=== PATIENT | female | born 1950 | race Two or more races ===

== ENCOUNTER 2017-06-30 12:25 | Emergency (ER) | payer OTHER ==
[~2017-06-30] VITALS: Ht 162.6 cm; Wt 152.0 kg
[~2017-06-30 12:25] MED LIST: ASPI81TA27 PO; ATOR10TA PO; HYDRCRY2 XX; LEVO25TA6 PO; LISI10TA6 PO; METF-370 PO
[2017-06-30 14:23] VITALS: BP 123/60
== END 2017-06-30 16:46 | disposition home or self-care (01) ==
LOC: ER 12:38
DX: N93.8 Other specified abnormal uterine and vaginal bleeding (principal); M19.90 Unspecified osteoarthritis, unspecified site; E11.9 Type 2 diabetes mellitus without complications; E78.5 Hyperlipidemia, unspecified; I10 Essential (primary) hypertension; E07.9 Disorder of thyroid, unspecified; Z90.49 Acquired absence of other specified parts of digestive tract; Z79.899 Other long term (current) drug therapy
CPT/HCPCS: 76830; 76856

== ENCOUNTER 2018-06-04 04:18 | Inpatient (IN) | payer OTHER ==
[~2018-06-04] VITALS: Ht 160 cm; Wt 151.3 kg
[2018-06-04] VITALS (39 sets, daily range): BP systolic 83–124; BP diastolic 37–62
[2018-06-04 05:24] LABS: Basophils # (auto) 0 uL; Basophils % (auto) 0.2 % (0.0-2.0); Eosinophils # (auto) 0 uL; Eosinophils % (auto) 0.1 % (0.0-7.0); Hemoglobin 14.3 g/dL (12.2-16.2); Lymphocytes # (auto) 0.6 uL; Lymphocytes % (auto) 2.9 % (10.0-50.0); Mean Corpuscular Hemoglobin 33.7 pg (28.0-32.0); Mean Corpuscular Hgb Conc. 33.9 g/dL (32.0-36.0); Mean Corpuscular Volume 99.4 fL (80.0-100.0); Monocytes # (auto) 1.3 uL; Monocytes % (auto) 5.9 % (0.0-12.0); Neutrophils # (auto) 19.6 uL; Neutrophils % (auto) 90.9 % (37.0-80.0); Platelet Count (auto) 312 10^3/uL (140-450); Red Blood Cells 4.23 10^6/uL (4.0-5.20); Red Cell Distribution Width 13.5 % (11.8-14.3); White Blood Cell 21.5 10^3/uL (4.4-10.8)
[2018-06-04 05:36] LABS: INR 0.99 (0.9-1.15); Partial Thromboplastin Time 45.3 sec (23.78-33.04); Prothrombin Time 10.6 sec (9.27-12.13)
[2018-06-04 05:38] LABS: Alanine Aminotransferase 34 U/L (13-56); Anion Gap 14 (5-15); Aspartate Aminotransferase 36 U/L (15-37); BUN/Creatinine Ratio 10.8; Blood Urea Nitrogen 11 mg/dL (7-18); Carbon Dioxide 19 mmol/L (21-32); Chloride 96 mmol/L (98-107); GFR African American 70 mL/min; GFR Non-African American 58 mL/min; Glucose 102 mg/dL (74-106); Lipase 53 U/L (73-393); Potassium 3.6 mmol/L (3.5-5.1); Sodium 129 mmol/L (136-145)
[2018-06-04 05:40] LABS: Lactic Acid w/Reflex 2.8 mmol/L (0.4-2.0)
[2018-06-04 05:43] LABS: Alkaline Phosphatase 158 U/L (45-117); Bilirubin, Total 1.4 mg/dL (0.2-1.0); Total Protein 7.5 g/dL (6.4-8.2)
[2018-06-04] MEDS ORDERED: SODIUM CHLORIDE 0.9% 1,000 ML IV ONE ×2 (05:45→06:00)
[2018-06-04] MEDS ORDERED: IOHEXOL 300 MG/ML 100ML BOTTLE IJ ONE (05:53)
[2018-06-04] MEDS ORDERED: LEVOFLOXACIN 750MG 150 ML IV ONE (06:00)
[2018-06-04 06:10] LABS: Albumin 1.1 g/dL (3.4-5.0)
[2018-06-04 06:33] LABS: Urine Bacteria MANY /hpf (None Seen); Urine Blood 2+ /uL (Negative); Urine Hyaline Cast MOD /lpf (0 - 2); Urine Mucus FEW (None Seen); Urine WBC 20 /hpf (0 - 5)
[2018-06-04] MEDS ORDERED: PIPERACILLIN-TAZOB 3.375GM 100 ML IV ONE (07:45)
[2018-06-04] MEDS ORDERED: CLINDAMYCIN 900MG IV 50 ML IV ONE (07:45)
[2018-06-04] MEDS ORDERED: MORPHINE SULFATE 4 MG/ML SYR/VIAL IV ONE (08:15)
[2018-06-04] MEDS ORDERED: ONDANSETRON HCL 4 MG/2 ML VIAL IV ONE (08:15)
[2018-06-04] MEDS ORDERED: MORPHINE SULFATE 4 MG/ML SYR/VIAL IV PRN (10:00)
[2018-06-04] MEDS ORDERED: PANTOPRAZOLE 40 MG/10 ML VIAL IV ONE (10:00)
[2018-06-04] MEDS ORDERED: DEXTROSE (50%) 50ML SYRG IV PRN (10:00)
[2018-06-04] MEDS ORDERED: NITROGLYCERIN 0.4 MG SL TAB SL PRN (10:00)
[2018-06-04] MEDS ORDERED: MORPHINE SULF INJ 2 MG/ML SYRINGE 1ML IV PRN (10:00)
[2018-06-04 10:03] LABS: Lactic Acid w/Reflex 2.9 mmol/L (0.4-2.0)
[2018-06-04] MEDS: SODIUM CHLORIDE 0.9% 1,000 ML IV SCH ×2 (10:16→15:15)
[2018-06-04] MEDS: PIPERACILLIN-TAZOB 3.375GM 100 ML IV SCH ×2 (12:00→18:12)
[2018-06-04] MEDS: InsuLIN REG 1unit/0.01ml Soln (100units/ml) SC SCH ×3 (12:00→23:49)
[2018-06-04] MEDS: ACCU-CHEK COMFORT CURVE STRIP VI SCH ×3 (12:01→23:49)
[2018-06-04] MEDS: CLINDAMYCIN 600MG IV 50 ML IV SCH ×2 (15:00→23:06)
[2018-06-04] MEDS ORDERED: LOSA50TA6 PO (16:55)
[2018-06-04] MEDS ORDERED: LEVO112T4 PO (16:55)
[2018-06-04] MEDS: MORPHINE SULF INJ 2 MG/ML SYRINGE 1ML IV PRN (19:34)
[2018-06-05] VITALS (89 sets, daily range): BP systolic 87–129; BP diastolic 40–71
[2018-06-05] MEDS: PIPERACILLIN-TAZOB 3.375GM 100 ML IV SCH ×5 (00:44→23:58)
[2018-06-05] MEDS: SODIUM CHLORIDE 0.9% 1,000 ML IV SCH ×3 (01:46→18:00)
[2018-06-05 04:00] LABS: Basophils # (auto) 0.1 uL; Basophils % (auto) 0.4 % (0.0-2.0); Eosinophils # (auto) 0.1 uL; Eosinophils % (auto) 0.7 % (0.0-7.0); Hematocrit 35.1 % (36.0-46.0); Hemoglobin 11.7 g/dL (12.2-16.2); Lymphocytes # (auto) 0.7 uL; Lymphocytes % (auto) 4.1 % (10.0-50.0); Mean Corpuscular Hgb Conc. 33.2 g/dL (32.0-36.0); Mean Corpuscular Volume 99.5 fL (80.0-100.0); Monocytes # (auto) 1.3 uL; Monocytes % (auto) 7.5 % (0.0-12.0); Neutrophils # (auto) 14.6 uL; Neutrophils % (auto) 87.3 % (37.0-80.0); Platelet Count (auto) 268 10^3/uL (140-450); Red Blood Cells 3.53 10^6/uL (4.0-5.20); Red Cell Distribution Width 13.5 % (11.8-14.3); White Blood Cell 16.7 10^3/uL (4.4-10.8)
[2018-06-05 04:14] LABS: Albumin 1.7 g/dL (3.4-5.0); Calcium 7.6 mg/dL (8.5-10.1); Potassium 3.6 mmol/L (3.5-5.1)
[2018-06-05 04:15] LABS: BUN/Creatinine Ratio 18.2
[2018-06-05 04:18] LABS: Total Protein 6.2 g/dL (6.4-8.2)
[2018-06-05 04:29] LABS: INR 1.03 (0.9-1.15); Partial Thromboplastin Time 48.3 sec (23.78-33.04)
[2018-06-05] MEDS: ACCU-CHEK COMFORT CURVE STRIP VI SCH ×3 (05:51→18:45)
[2018-06-05] MEDS: InsuLIN REG 1unit/0.01ml Soln (100units/ml) SC SCH ×3 (05:52→18:45)
[2018-06-05] MEDS: CLINDAMYCIN 600MG IV 50 ML IV SCH (07:30)
[2018-06-05] MEDS ORDERED: OPTISON 3ml Vial for INJ IV ONE (08:31)
[2018-06-05] MEDS ORDERED: POVIDONE IODINE 10 % TOPICAL OINT 30GM TOP ONE (09:11)
[2018-06-05] MEDS ORDERED: BENZOCAINE (DENTAL) 20 % SPRAY 60ML MT ONE (09:24)
[2018-06-05] MEDS ORDERED: ceFAZolin 1GM/50ML 50 ML IV ONE (09:28)
[2018-06-05] MEDS ORDERED: ONDANSETRON HCL 4 MG/2 ML VIAL IV PRN (11:15)
[2018-06-05] MEDS ORDERED: VANCOMYCIN PER PHARMACY 0 MG IV SCH (11:30)
[2018-06-05] MEDS ORDERED: MIDAZOLAM DRIP 50 mg/50mL 50 ML IV ONE (12:33)
[2018-06-05] MEDS: PANTOPRAZOLE 40 MG/10 ML VIAL IV SCH (13:00)
[2018-06-05] MEDS: MIDAZOLAM DRIP 50 mg/50mL 50 ML IV SCH ×2 (13:03→23:29)
[2018-06-05] MEDS ORDERED: ROCURONIUM 10MG/ML 10ML VIAL IV ONE (13:50)
[2018-06-05] MEDS ORDERED: fentaNYL CITRATE 250 MCG/5 ML VL IV ONE (13:50)
[2018-06-05] MEDS ORDERED: SUCCINYLCHOLINE CHLORIDE 20 MG/ML 10ML VIAL IV ONE (13:50)
[2018-06-05] MEDS ORDERED: MIDAZOLAM HCL 1MG/1ML-2 ML VIAL IV ONE (13:50)
[2018-06-05] MEDS ORDERED: PROPOFOL 10 MG/ML 20 ML IV ONE (13:50)
[2018-06-05] MEDS ORDERED: ceFAZolin 1GM VL IV ONE (13:50)
[2018-06-05] MEDS ORDERED: LIDOCAINE 1% (LOCAL ANESTH.) PF 5ml SDV ID ONE (15:45)
[2018-06-05] MEDS: VANCOMYCIN 1,500 MG in D5W 5% 250 ML IV SCH (16:00)
[2018-06-05] MEDS ORDERED: metroNIDAZOLE 250MG/50 ML 50 ML IR SCH ×2 (18:00→18:13)
[2018-06-05] MEDS ORDERED: metroNIDAZOLE 500MG/100ML 50 ML IV SCH (18:00)
[2018-06-05] MEDS: SODIUM CHLOR 0.9% PF (SALINE LOCK) 10ML VIAL/SYR IV SCH (21:58)
[2018-06-06] VITALS (106 sets, daily range): BP systolic 91–116; BP diastolic 42–66
[2018-06-06] MEDS ORDERED: SODIUM CHLOR 0.9% PF (SALINE LOCK) 10ML VIAL/SYR XX SCH
[2018-06-06] MEDS: SODIUM CHLORIDE 0.9% 1,000 ML IV SCH ×3 (01:46→17:46)
[2018-06-06] MEDS: VANCOMYCIN 1,500 MG in D5W 5% 250 ML IV SCH ×2 (03:13→15:30)
[2018-06-06 03:38] LABS: Basophils # (auto) 0 uL; Basophils % (auto) 0.2 % (0.0-2.0); Eosinophils # (auto) 0.1 uL; Eosinophils % (auto) 0.6 % (0.0-7.0); Hematocrit 32.4 % (36.0-46.0); Hemoglobin 10.7 g/dL (12.2-16.2); Lymphocytes # (auto) 0.7 uL; Lymphocytes % (auto) 4.4 % (10.0-50.0); Mean Corpuscular Hemoglobin 32.7 pg (28.0-32.0); Mean Corpuscular Hgb Conc. 33.1 g/dL (32.0-36.0); Mean Corpuscular Volume 98.9 fL (80.0-100.0); Monocytes # (auto) 1.1 uL; Monocytes % (auto) 6.5 % (0.0-12.0); Neutrophils # (auto) 14.4 uL; Neutrophils % (auto) 88.3 % (37.0-80.0); Platelet Count (auto) 244 10^3/uL (140-450); Red Blood Cells 3.27 10^6/uL (4.0-5.20); Red Cell Distribution Width 13.6 % (11.8-14.3); White Blood Cell 16.3 10^3/uL (4.4-10.8)
[2018-06-06 03:54] LABS: Calcium 7.5 mg/dL (8.5-10.1); Partial Thromboplastin Time 39.5 sec (23.78-33.04)
[2018-06-06 03:56] LABS: BUN/Creatinine Ratio 16.7; Magnesium 2.3 mg/dL (1.6-2.6)
[2018-06-06 04:44] LABS: Prothrombin Time 10.7 sec (9.27-12.13)
[2018-06-06] MEDS: POTASSIUM CHL 20MEQ/100ML 100 ML IV SCH ×7 (05:59→23:52)
[2018-06-06] MEDS: InsuLIN REG 1unit/0.01ml Soln (100units/ml) SC SCH ×5 (06:00→23:57)
[2018-06-06] MEDS: PIPERACILLIN-TAZOB 3.375GM 100 ML IV SCH ×4 (06:00→23:50)
[2018-06-06] MEDS: ACCU-CHEK COMFORT CURVE STRIP VI SCH ×5 (06:00→23:58)
[2018-06-06] MEDS: MIDAZOLAM DRIP 50 mg/50mL 50 ML IV SCH (06:08)
[2018-06-06] MEDS: metroNIDAZOLE 250MG/50 ML 50 ML IR SCH (07:50)
[2018-06-06] MEDS: SODIUM CHLOR 0.9% PF (SALINE LOCK) 10ML VIAL/SYR IV SCH ×2 (10:16→22:00)
[2018-06-06] MEDS: PANTOPRAZOLE 40 MG/10 ML VIAL IV SCH (10:40)
[2018-06-06] MEDS: fentaNYL Drip 2500mCg/250mlNS 250 ML IV SCH (11:55)
[2018-06-06] MEDS ORDERED: LORazepam 2MG/ML-1ML VIAL IV PRN (12:45)
[2018-06-06] MEDS: SODIUM CHLOR 0.9% PF (SALINE LOCK) 10ML VIAL/SYR XX SCH ×2 (16:20→23:58)
[2018-06-06 17:56] LABS: Basophils # (auto) 0 uL; Basophils % (auto) 0.2 % (0.0-2.0); Eosinophils # (auto) 0.2 uL; Eosinophils % (auto) 1.2 % (0.0-7.0); Hematocrit 31.5 % (36.0-46.0); Hemoglobin 10.5 g/dL (12.2-16.2); Lymphocytes # (auto) 0.8 uL; Lymphocytes % (auto) 5.2 % (10.0-50.0); Mean Corpuscular Hemoglobin 33.5 pg (28.0-32.0); Mean Corpuscular Hgb Conc. 33.3 g/dL (32.0-36.0); Mean Corpuscular Volume 100.7 fL (80.0-100.0); Monocytes % (auto) 6.7 % (0.0-12.0); Neutrophils # (auto) 12.7 uL; Neutrophils % (auto) 86.7 % (37.0-80.0); Platelet Count (auto) 237 10^3/uL (140-450); Red Blood Cells 3.13 10^6/uL (4.0-5.20); White Blood Cell 14.7 10^3/uL (4.4-10.8)
[2018-06-06 18:10] LABS: INR 1.01 (0.9-1.15); Partial Thromboplastin Time 33.1 sec (23.78-33.04); Prothrombin Time 10.8 sec (9.27-12.13)
[2018-06-06 18:16] LABS: Albumin 1.6 g/dL (3.4-5.0); BUN/Creatinine Ratio 13.8; Bilirubin, Direct 0.4 mg/dL (0-0.2); Bilirubin, Total 0.8 mg/dL (0.2-1.0); Calcium 7.3 mg/dL (8.5-10.1); Magnesium 2.7 mg/dL (1.6-2.6); Potassium 3.3 mmol/L (3.5-5.1); Total Protein 5.9 g/dL (6.4-8.2)
[2018-06-06] MEDS: ALBUTEROL SULF 2.5 MG/0.5ML(0.5%) NEB SOLN NEB SCH (18:22)
[2018-06-07] VITALS (96 sets, daily range): BP systolic 56–149; BP diastolic 30–91
[2018-06-07] MEDS: ALBUTEROL SULF 2.5 MG/0.5ML(0.5%) NEB SOLN NEB SCH ×4 (00:08→19:27)
[2018-06-07] MEDS: SODIUM CHLORIDE 0.9% 1,000 ML IV SCH ×4 (01:46→20:30)
[2018-06-07] MEDS: VANCOMYCIN 1,500 MG in D5W 5% 250 ML IV SCH ×2 (03:00→17:00)
[2018-06-07] MEDS ORDERED: NOREPINEPHRINE 8 MG/250ML KIT 250 ML IV ONE (03:44)
[2018-06-07] MEDS: NOREPINEPHRINE 8 MG/250ML KIT 250 ML IV SCH (03:45)
[2018-06-07 04:18] LABS: Basophils # (auto) 0.1 uL; Basophils % (auto) 0.4 % (0.0-2.0); Eosinophils # (auto) 0.2 uL; Eosinophils % (auto) 1.3 % (0.0-7.0); Hematocrit 32.1 % (36.0-46.0); Hemoglobin 10.6 g/dL (12.2-16.2); Lymphocytes # (auto) 0.8 uL; Lymphocytes % (auto) 5.1 % (10.0-50.0); Mean Corpuscular Hemoglobin 32.8 pg (28.0-32.0); Mean Corpuscular Volume 99.3 fL (80.0-100.0); Monocytes # (auto) 1.3 uL; Monocytes % (auto) 8.5 % (0.0-12.0); Neutrophils # (auto) 12.4 uL; Neutrophils % (auto) 84.7 % (37.0-80.0); Platelet Count (auto) 252 10^3/uL (140-450); Red Blood Cells 3.23 10^6/uL (4.0-5.20); Red Cell Distribution Width 13.9 % (11.8-14.3); White Blood Cell 14.7 10^3/uL (4.4-10.8)
[2018-06-07 04:19] LABS: Albumin 1.6 g/dL (3.4-5.0); BUN/Creatinine Ratio 12.2; Calcium 7.4 mg/dL (8.5-10.1); Magnesium 2.3 mg/dL (1.6-2.6); Potassium 4.5 mmol/L (3.5-5.1)
[2018-06-07 04:23] LABS: Bilirubin, Total 0.8 mg/dL (0.2-1.0); Total Protein 5.9 g/dL (6.4-8.2)
[2018-06-07 04:36] LABS: INR 0.98 (0.9-1.15); Partial Thromboplastin Time 35.1 sec (23.78-33.04); Prothrombin Time 10.5 sec (9.27-12.13)
[2018-06-07 04:46] LABS: Bilirubin, Direct 0.4 mg/dL (0-0.2)
[2018-06-07] MEDS: PIPERACILLIN-TAZOB 3.375GM 100 ML IV SCH ×3 (06:00→18:30)
[2018-06-07] MEDS: ACCU-CHEK COMFORT CURVE STRIP VI SCH ×3 (06:00→18:30)
[2018-06-07] MEDS: InsuLIN REG 1unit/0.01ml Soln (100units/ml) SC SCH ×3 (06:00→18:30)
[2018-06-07] MEDS ORDERED: ALBUMIN 25% 100 ML IV ONE (07:15)
[2018-06-07] MEDS: SODIUM CHLOR 0.9% PF (SALINE LOCK) 10ML VIAL/SYR IV SCH ×2 (10:00→22:00)
[2018-06-07] MEDS: metroNIDAZOLE 250MG/50 ML 50 ML IR SCH (10:28)
[2018-06-07] MEDS: PANTOPRAZOLE 40 MG/10 ML VIAL IV SCH (10:29)
[2018-06-07] MEDS: LEVOTHYROXINE SODIUM 100 MCG/5 ML INJ IV SCH (10:29)
[2018-06-07] MEDS: fentaNYL Drip 2500mCg/250mlNS 250 ML IV SCH (10:52)
[2018-06-07] MEDS: MIDAZOLAM DRIP 50 mg/50mL 50 ML IV SCH (12:59)
[2018-06-07] MEDS: SODIUM CHLOR 0.9% PF (SALINE LOCK) 10ML VIAL/SYR XX SCH (16:00)
[2018-06-07] MEDS ORDERED: TPN PER PHARMACY 0 ML IV SCH (19:15)
[2018-06-07] MEDS ORDERED: AMINO ACID INFUSION IN D10W 1,000 ML IV NR (20:30)
[2018-06-07] MEDS ORDERED: DEXTROSE (50%) 50ML SYRG IV SCH (20:30)
[2018-06-08] VITALS (52 sets, daily range): BP systolic 90–140; BP diastolic 37–105
[2018-06-08] MEDS: ALBUTEROL SULF 2.5 MG/0.5ML(0.5%) NEB SOLN NEB SCH ×4 (00:24→18:34)
[2018-06-08] MEDS: PIPERACILLIN-TAZOB 3.375GM 100 ML IV SCH ×5 (00:30→23:50)
[2018-06-08] MEDS: InsuLIN REG 1unit/0.01ml Soln (100units/ml) SC SCH ×5 (00:30→23:50)
[2018-06-08] MEDS: ACCU-CHEK COMFORT CURVE STRIP VI SCH ×5 (00:30→23:51)
[2018-06-08] MEDS: SODIUM CHLOR 0.9% PF (SALINE LOCK) 10ML VIAL/SYR XX SCH ×3 (00:30→23:51)
[2018-06-08] MEDS: MORPHINE SULF INJ 2 MG/ML SYRINGE 1ML IV PRN (02:43)
[2018-06-08] MEDS: VANCOMYCIN 1,500 MG in D5W 5% 250 ML IV SCH ×2 (03:15→15:00)
[2018-06-08] MEDS: NOREPINEPHRINE 8 MG/250ML KIT 250 ML IV SCH (03:45)
[2018-06-08 04:07] LABS: Basophils # (auto) 0 uL; Basophils % (auto) 0.1 % (0.0-2.0); Eosinophils # (auto) 0.4 uL; Hematocrit 31.4 % (36.0-46.0); Hemoglobin 10.4 g/dL (12.2-16.2); Lymphocytes # (auto) 0.9 uL; Lymphocytes % (auto) 7.7 % (10.0-50.0); Mean Corpuscular Hemoglobin 33.2 pg (28.0-32.0); Mean Corpuscular Hgb Conc. 33.2 g/dL (32.0-36.0); Mean Corpuscular Volume 99.9 fL (80.0-100.0); Monocytes % (auto) 8.3 % (0.0-12.0); Neutrophils # (auto) 9.9 uL; Neutrophils % (auto) 80.9 % (37.0-80.0); Platelet Count (auto) 236 10^3/uL (140-450); Red Blood Cells 3.14 10^6/uL (4.0-5.20); Red Cell Distribution Width 14.1 % (11.8-14.3); White Blood Cell 12.3 10^3/uL (4.4-10.8)
[2018-06-08 04:32] LABS: Partial Thromboplastin Time 32.9 sec (23.78-33.04); Prothrombin Time 10.7 sec (9.27-12.13)
[2018-06-08 04:33] LABS: Albumin 1.8 g/dL (3.4-5.0); BUN/Creatinine Ratio 9.5; Bilirubin, Total 0.6 mg/dL (0.2-1.0); Calcium 7.6 mg/dL (8.5-10.1); Magnesium 2.9 mg/dL (1.6-2.6); Phosphorus 2.9 mg/dL (2.5-4.90); Potassium 3.6 mmol/L (3.5-5.1); Pre Albumin 5.8 mg/dL (20.0-40.0); Total Protein 5.9 g/dL (6.4-8.2)
[2018-06-08] MEDS: SODIUM CHLORIDE 0.9% 1,000 ML IV SCH ×2 (10:42→20:43)
[2018-06-08] MEDS: LEVOTHYROXINE SODIUM 100 MCG/5 ML INJ IV SCH (10:42)
[2018-06-08] MEDS: PANTOPRAZOLE 40 MG/10 ML VIAL IV SCH (10:42)
[2018-06-08] MEDS: metroNIDAZOLE 250MG/50 ML 50 ML IR SCH (10:42)
[2018-06-08] MEDS: SODIUM CHLOR 0.9% PF (SALINE LOCK) 10ML VIAL/SYR IV SCH ×2 (10:43→22:00)
[2018-06-08] MEDS: fentaNYL Drip 2500mCg/250mlNS 250 ML IV SCH (10:52)
[2018-06-08] MEDS ORDERED: SODIUM CHLORIDE 0.9% 1,000 ML IV ONE (11:00)
[2018-06-08] MEDS ORDERED: MORPHINE SULFATE 4 MG/ML SYR/VIAL IV PRN (11:00)
[2018-06-08] MEDS: MIDAZOLAM DRIP 50 mg/50mL 50 ML IV SCH (12:59)
[2018-06-08] MEDS ORDERED: TPN PER PHARMACY IV NR ×7 (20:00)
[2018-06-09] VITALS: BP 123/63
[2018-06-09] MEDS: ALBUTEROL SULF 2.5 MG/0.5ML(0.5%) NEB SOLN NEB SCH ×4 (00:11→18:03)
[2018-06-09] MEDS: MORPHINE SULF INJ 2 MG/ML SYRINGE 1ML IV PRN (01:04)
[2018-06-09] MEDS: VANCOMYCIN 1,500 MG in D5W 5% 250 ML IV SCH (03:04)
[2018-06-09 04:08] VITALS: BP 112/58
[2018-06-09 04:54] LABS: Basophils # (auto) 0 uL; Basophils % (auto) 0.2 % (0.0-2.0); Eosinophils # (auto) 0.4 uL; Eosinophils % (auto) 3.6 % (0.0-7.0); Hematocrit 31.9 % (36.0-46.0); Hemoglobin 10.6 g/dL (12.2-16.2); Lymphocytes # (auto) 0.9 uL; Lymphocytes % (auto) 8.6 % (10.0-50.0); Mean Corpuscular Hemoglobin 33.4 pg (28.0-32.0); Mean Corpuscular Hgb Conc. 33.3 g/dL (32.0-36.0); Mean Corpuscular Volume 100.3 fL (80.0-100.0); Monocytes # (auto) 0.9 uL; Neutrophils # (auto) 8.7 uL; Neutrophils % (auto) 79.6 % (37.0-80.0); Platelet Count (auto) 292 10^3/uL (140-450); Red Blood Cells 3.18 10^6/uL (4.0-5.20); White Blood Cell 10.9 10^3/uL (4.4-10.8)
[2018-06-09 05:15] LABS: Albumin 1.8 g/dL (3.4-5.0); BUN/Creatinine Ratio 11.1; Bilirubin, Total 0.5 mg/dL (0.2-1.0); Calcium 7.5 mg/dL (8.5-10.1); Magnesium 2.9 mg/dL (1.6-2.6); Phosphorus 2.8 mg/dL (2.5-4.90); Potassium 3.7 mmol/L (3.5-5.1); Total Protein 5.7 g/dL (6.4-8.2)
[2018-06-09] MEDS: ACCU-CHEK COMFORT CURVE STRIP VI SCH ×4 (06:00→23:15)
[2018-06-09 06:21] LABS: INR 1.03 (0.9-1.15); Partial Thromboplastin Time 32.4 sec (23.78-33.04)
[2018-06-09] MEDS: PIPERACILLIN-TAZOB 3.375GM 100 ML IV SCH ×2 (06:37→12:15)
[2018-06-09] MEDS: InsuLIN REG 1unit/0.01ml Soln (100units/ml) SC SCH ×4 (06:37→23:15)
[2018-06-09 07:30] VITALS: BP 122/71
[2018-06-09] MEDS: PANTOPRAZOLE 40 MG/10 ML VIAL IV SCH (10:52)
[2018-06-09] MEDS: LEVOTHYROXINE SODIUM 100 MCG/5 ML INJ IV SCH (10:52)
[2018-06-09] MEDS: SODIUM CHLORIDE 0.9% 1,000 ML IV SCH ×2 (10:53→22:30)
[2018-06-09] MEDS: metroNIDAZOLE 250MG/50 ML 50 ML IR SCH (10:53)
[2018-06-09] MEDS: SODIUM CHLOR 0.9% PF (SALINE LOCK) 10ML VIAL/SYR IV SCH ×2 (12:16→22:19)
[2018-06-09] MEDS ORDERED: SODIUM CHLORIDE 0.9% 1,000 ML IV ONE (14:00)
[2018-06-09] MEDS: VANCOMYCIN 1GM/250ML 250 ML IV SCH (14:41)
[2018-06-09 16:00] VITALS: BP 128/63
[2018-06-09] MEDS: cefTRIAXone 1GM/10ml IVPUSH 10 ML IV SCH (16:03)
[2018-06-09] MEDS ORDERED: TPN PER PHARMACY IV NR ×7 (20:00)
[2018-06-09 20:12] VITALS: BP 118/59
[2018-06-09 23:59] LABS: Urine Bacteria FEW /hpf (None Seen); Urine Blood 2+ /uL (Negative); Urine Mucus FEW (None Seen); Urine Specific Gravity 1.007 (1.001-1.035); Urine WBC 10 /hpf (0 - 5)
[2018-06-10] MEDS: ALBUTEROL SULF 2.5 MG/0.5ML(0.5%) NEB SOLN NEB SCH ×4 (00:01→19:01)
[2018-06-10 00:26] VITALS: BP 132/66
[2018-06-10] MEDS: MORPHINE SULF INJ 2 MG/ML SYRINGE 1ML IV PRN ×2 (01:31→12:38)
[2018-06-10] MEDS: cefTRIAXone 1GM/10ml IVPUSH 10 ML IV SCH ×2 (02:24→15:27)
[2018-06-10] MEDS: VANCOMYCIN 1GM/250ML 250 ML IV SCH ×2 (02:32→15:27)
[2018-06-10 04:00] VITALS: BP 127/65
[2018-06-10 05:04] LABS: Basophils # (auto) 0 uL; Basophils % (auto) 0.2 % (0.0-2.0); Eosinophils # (auto) 0.4 uL; Monocytes # (auto) 0.8 uL
[2018-06-10 05:11] LABS: Eosinophils % (auto) 3.7 % (0.0-7.0); Hematocrit 34.6 % (36.0-46.0); Hemoglobin 11.6 g/dL (12.2-16.2); Lymphocytes # (auto) 0.9 uL; Lymphocytes % (auto) 8.3 % (10.0-50.0); Mean Corpuscular Hemoglobin 33.7 pg (28.0-32.0); Mean Corpuscular Hgb Conc. 33.4 g/dL (32.0-36.0); Mean Corpuscular Volume 100.7 fL (80.0-100.0); Monocytes % (auto) 7.4 % (0.0-12.0); Neutrophils # (auto) 8.3 uL; Neutrophils % (auto) 80.4 % (37.0-80.0); Platelet Count (auto) 317 10^3/uL (140-450); Red Blood Cells 3.43 10^6/uL (4.0-5.20); Red Cell Distribution Width 13.8 % (11.8-14.3); White Blood Cell 10.3 10^3/uL (4.4-10.8)
[2018-06-10 05:23] LABS: Albumin 1.8 g/dL (3.4-5.0); BUN/Creatinine Ratio 12.5; Bilirubin, Total 0.5 mg/dL (0.2-1.0); Calcium 7.7 mg/dL (8.5-10.1); Magnesium 2.3 mg/dL (1.6-2.6); Potassium 3.3 mmol/L (3.5-5.1); Total Protein 6.2 g/dL (6.4-8.2)
[2018-06-10] MEDS: InsuLIN REG 1unit/0.01ml Soln (100units/ml) SC SCH ×4 (06:00→23:23)
[2018-06-10] MEDS: ACCU-CHEK COMFORT CURVE STRIP VI SCH ×4 (06:19→23:24)
[2018-06-10 08:00] VITALS: BP 134/66
[2018-06-10] MEDS ORDERED: POTASSIUM CHL 20MEQ/100ML 100 ML IV ONE (09:45)
[2018-06-10 10:37] LABS: Creatinine, Urine 30 mg/dL (30.0-125.0); Sodium Urine 73 mmol/L (40-220)
[2018-06-10] MEDS: LEVOTHYROXINE SODIUM 100 MCG/5 ML INJ IV SCH (11:03)
[2018-06-10] MEDS: SODIUM CHLOR 0.9% PF (SALINE LOCK) 10ML VIAL/SYR IV SCH ×2 (11:03→22:00)
[2018-06-10] MEDS: PANTOPRAZOLE 40 MG/10 ML VIAL IV SCH (11:03)
[2018-06-10] MEDS: SODIUM CHLORIDE 0.9% 1,000 ML IV SCH (11:24)
[2018-06-10 12:00] VITALS: BP 133/64
[2018-06-10] MEDS ORDERED: SODIUM CHLORIDE 0.9% 500 ML IV ONE (14:30)
[2018-06-10] MEDS ORDERED: TPN PER PHARMACY IV NR ×7 (20:00)
[2018-06-10 20:30] VITALS: BP 146/68
[2018-06-11] VITALS (8 sets, daily range): BP systolic 132–159; BP diastolic 68–90
[2018-06-11] MEDS: ALBUTEROL SULF 2.5 MG/0.5ML(0.5%) NEB SOLN NEB SCH ×4 (00:27→17:54)
[2018-06-11] MEDS: MORPHINE SULF INJ 2 MG/ML SYRINGE 1ML IV PRN ×2 (01:39→20:23)
[2018-06-11 02:21] LABS: Basophils # (auto) 0.1 uL; Basophils % (auto) 0.4 % (0.0-2.0); Eosinophils # (auto) 0.4 uL; Eosinophils % (auto) 2.6 % (0.0-7.0); Hematocrit 34.5 % (36.0-46.0); Hemoglobin 11.3 g/dL (12.2-16.2); Lymphocytes # (auto) 0.9 uL; Lymphocytes % (auto) 6.7 % (10.0-50.0); Mean Corpuscular Hemoglobin 32.6 pg (28.0-32.0); Mean Corpuscular Hgb Conc. 32.8 g/dL (32.0-36.0); Mean Corpuscular Volume 99.3 fL (80.0-100.0); Monocytes # (auto) 0.8 uL; Monocytes % (auto) 5.8 % (0.0-12.0); Neutrophils # (auto) 11.9 uL; Neutrophils % (auto) 84.5 % (37.0-80.0); Platelet Count (auto) 323 10^3/uL (140-450); Red Blood Cells 3.48 10^6/uL (4.0-5.20); Red Cell Distribution Width 13.9 % (11.8-14.3); White Blood Cell 14.1 10^3/uL (4.4-10.8)
[2018-06-11] MEDS: VANCOMYCIN 1GM/250ML 250 ML IV SCH (02:51)
[2018-06-11] MEDS: SODIUM CHLORIDE 0.9% 1,000 ML IV SCH ×2 (02:51→19:50)
[2018-06-11] MEDS: cefTRIAXone 1GM/10ml IVPUSH 10 ML IV SCH ×2 (02:52→15:01)
[2018-06-11 03:10] LABS: Albumin 1.9 g/dL (3.4-5.0); BUN/Creatinine Ratio 12.3; Calcium 8.1 mg/dL (8.5-10.1); Potassium 3.5 mmol/L (3.5-5.1)
[2018-06-11 03:12] LABS: Bilirubin, Total 0.4 mg/dL (0.2-1.0); Phosphorus 2.7 mg/dL (2.5-4.90); Total Protein 6.8 g/dL (6.4-8.2)
[2018-06-11] MEDS: ACCU-CHEK COMFORT CURVE STRIP VI SCH ×4 (05:47→23:41)
[2018-06-11] MEDS: InsuLIN REG 1unit/0.01ml Soln (100units/ml) SC SCH ×5 (05:48→23:41)
[2018-06-11] MEDS: metroNIDAZOLE 500MG/100ML 100 ML IV SCH ×3 (10:15→20:05)
[2018-06-11] MEDS: SODIUM CHLOR 0.9% PF (SALINE LOCK) 10ML VIAL/SYR IV SCH ×2 (10:15→20:05)
[2018-06-11] MEDS: LEVOTHYROXINE SODIUM 100 MCG/5 ML INJ IV SCH (10:15)
[2018-06-11] MEDS: PANTOPRAZOLE 40 MG/10 ML VIAL IV SCH (10:15)
[2018-06-11] MEDS ORDERED: SODIUM CHLORIDE 0.9% 1,000 ML IV ONE (12:30)
[2018-06-11] MEDS ORDERED: metroNIDAZOLE 500 MG TAB PO SCH (12:30)
[2018-06-11] MEDS ORDERED: TPN PER PHARMACY IV NR ×9 (20:00)
[2018-06-12] MEDS: ALBUTEROL SULF 2.5 MG/0.5ML(0.5%) NEB SOLN NEB SCH ×4 (00:06→18:32)
[2018-06-12 02:29] LABS: Urine Bacteria FEW /hpf (None Seen); Urine Blood TRACE /uL (Negative); Urine Mucus FEW (None Seen); Urine Specific Gravity 1.012 (1.001-1.035); Urine WBC 9 /hpf (0 - 5)
[2018-06-12] MEDS: metroNIDAZOLE 500MG/100ML 100 ML IV SCH ×4 (02:31→21:45)
[2018-06-12] MEDS: cefTRIAXone 1GM/10ml IVPUSH 10 ML IV SCH (03:00)
[2018-06-12 05:19] LABS: Basophils # (auto) 0 uL; Basophils % (auto) 0.3 % (0.0-2.0); Eosinophils # (auto) 0.3 uL; Eosinophils % (auto) 2.2 % (0.0-7.0); Hematocrit 33.7 % (36.0-46.0); Hemoglobin 11.3 g/dL (12.2-16.2); Lymphocytes # (auto) 0.9 uL; Lymphocytes % (auto) 6.2 % (10.0-50.0); Mean Corpuscular Hemoglobin 33.3 pg (28.0-32.0); Mean Corpuscular Hgb Conc. 33.5 g/dL (32.0-36.0); Mean Corpuscular Volume 99.5 fL (80.0-100.0); Monocytes % (auto) 7.3 % (0.0-12.0); Neutrophils # (auto) 11.6 uL; Platelet Count (auto) 314 10^3/uL (140-450); Red Blood Cells 3.39 10^6/uL (4.0-5.20); Red Cell Distribution Width 14.1 % (11.8-14.3); White Blood Cell 13.8 10^3/uL (4.4-10.8)
[2018-06-12 05:45] LABS: Albumin 1.9 g/dL (3.4-5.0); BUN/Creatinine Ratio 13.8; Bilirubin, Total 0.3 mg/dL (0.2-1.0); Calcium 8.2 mg/dL (8.5-10.1); Phosphorus 2.8 mg/dL (2.5-4.90); Potassium 3.1 mmol/L (3.5-5.1); Pre Albumin 11.1 mg/dL (20.0-40.0); Total Protein 6.7 g/dL (6.4-8.2)
[2018-06-12] MEDS: InsuLIN REG 1unit/0.01ml Soln (100units/ml) SC SCH ×2 (06:00→11:34)
[2018-06-12] MEDS: ACCU-CHEK COMFORT CURVE STRIP VI SCH ×2 (06:00→11:34)
[2018-06-12 08:05] VITALS: BP 143/72
[2018-06-12] MEDS: LEVOTHYROXINE SODIUM 100 MCG/5 ML INJ IV SCH (11:22)
[2018-06-12] MEDS: PANTOPRAZOLE 40 MG/10 ML VIAL IV SCH (11:22)
[2018-06-12] MEDS: SODIUM CHLOR 0.9% PF (SALINE LOCK) 10ML VIAL/SYR IV SCH ×2 (11:23→21:45)
[2018-06-12] MEDS: MORPHINE SULF INJ 2 MG/ML SYRINGE 1ML IV PRN ×2 (11:24→21:45)
[2018-06-12 12:04] VITALS: BP 143/68
[2018-06-12] MEDS: ENOXAPARIN SOD 150 MG/1 ML SYRINGE SC SCH ×2 (12:52→21:47)
[2018-06-12] MEDS: AMPICILLIN 500 MG CAP PO SCH ×3 (12:52→23:50)
[2018-06-12] MEDS: POTASSIUM CHL 20MEQ/100ML 100 ML IV SCH ×2 (12:55→15:25)
[2018-06-12] MEDS ORDERED: LIDOCAINE 1% (LOCAL ANESTH.) PF 5ml SDV ID ONE (14:00)
[2018-06-12 16:00] VITALS: BP 129/68
[2018-06-12] MEDS ORDERED: TPN PER PHARMACY IV NR ×9 (20:00)
[2018-06-12 20:08] VITALS: BP 141/74
[2018-06-12 23:56] VITALS: BP 135/70
[2018-06-13] MEDS: ALBUTEROL SULF 2.5 MG/0.5ML(0.5%) NEB SOLN NEB SCH ×4 (00:13→18:46)
[2018-06-13] MEDS: metroNIDAZOLE 500MG/100ML 100 ML IV SCH ×3 (03:01→16:57)
[2018-06-13] MEDS: AMPICILLIN 500 MG CAP PO SCH ×3 (04:55→18:38)
[2018-06-13 06:11] LABS: Basophils # (auto) 0 uL; Basophils % (auto) 0.4 % (0.0-2.0); Eosinophils # (auto) 0.3 uL; Eosinophils % (auto) 2.3 % (0.0-7.0); Hematocrit 32.3 % (36.0-46.0); Hemoglobin 10.6 g/dL (12.2-16.2); Lymphocytes # (auto) 1.1 uL; Lymphocytes % (auto) 9.4 % (10.0-50.0); Mean Corpuscular Hemoglobin 33.1 pg (28.0-32.0); Mean Corpuscular Volume 100.2 fL (80.0-100.0); Monocytes # (auto) 1.1 uL; Monocytes % (auto) 8.8 % (0.0-12.0); Neutrophils # (auto) 9.6 uL; Neutrophils % (auto) 79.1 % (37.0-80.0); Platelet Count (auto) 302 10^3/uL (140-450); Red Blood Cells 3.22 10^6/uL (4.0-5.20); Red Cell Distribution Width 14.2 % (11.8-14.3); White Blood Cell 12.1 10^3/uL (4.4-10.8)
[2018-06-13 06:32] LABS: BUN/Creatinine Ratio 12.7; Magnesium 2.1 mg/dL (1.6-2.6); Potassium 3.2 mmol/L (3.5-5.1)
[2018-06-13 07:30] VITALS: BP 134/70
[2018-06-13] MEDS: SODIUM CHLOR 0.9% PF (SALINE LOCK) 10ML VIAL/SYR IV SCH (10:55)
[2018-06-13] MEDS: PANTOPRAZOLE 40 MG/10 ML VIAL IV SCH (10:55)
[2018-06-13] MEDS: ENOXAPARIN SOD 150 MG/1 ML SYRINGE SC SCH (10:56)
[2018-06-13] MEDS: LEVOTHYROXINE SODIUM 100 MCG/5 ML INJ IV SCH (10:56)
[2018-06-13] MEDS ORDERED: POTASSIUM CHL 20 Meq TABLET PO ONE (11:15)
[2018-06-13 12:00] VITALS: BP 131/87
[2018-06-13] MEDS: POTASSIUM CHL 20MEQ/100ML 100 ML IV SCH ×2 (15:18→16:57)
[2018-06-13 17:04] VITALS: BP 152/86
== END 2018-06-13 19:48 | disposition home or self-care (01) | DRG 853 ==
LOC: EDBD 04:18 → ER 04:24 → TELE 05:25 → ICU WEST 13:50 → DOU IN ICU 06-08 14:20
PROVIDERS: ADMIT Internal Medicine; ATTEND Internal Medicine
PROC: 0DU Gastrointestinal System, Supplement (ICD-10-PCS; 2018-06-05)
PROC: 0DNL0ZZ Release Transverse Colon, Open Approach (ICD-10-PCS; 2018-06-05)
PROC: 5A1945Z Respiratory Ventilation, 24-96 Consecutive Hours (ICD-10-PCS; 2018-06-05)
PROC: 0BH17EZ Insertion of Endotracheal Airway into Trachea, Via Natural or Artificial Opening (ICD-10-PCS; 2018-06-05)
PROC: 02HV33Z Insertion of Infusion Device into Superior Vena Cava, Percutaneous Approach (ICD-10-PCS; 2018-06-05)
PROC: 30233L1 Transfusion of Nonautologous Fresh Plasma into Peripheral Vein, Percutaneous Approach (ICD-10-PCS; 2018-06-05)
PROC: 30233K1 Transfusion of Nonautologous Frozen Plasma into Peripheral Vein, Percutaneous Approach (ICD-10-PCS; 2018-06-05)
PROC: 0WPF0JZ Removal of Synthetic Substitute from Abdominal Wall, Open Approach (ICD-10-PCS; 2018-06-05)
PROC: 0WQF0ZZ Repair Abdominal Wall, Open Approach (ICD-10-PCS; 2018-06-05)
PROC: 0W9G0ZZ Drainage of Peritoneal Cavity, Open Approach (ICD-10-PCS; principal; 2018-06-05 09:29)
PROC: 3E0336Z Introduction of Nutritional Substance into Peripheral Vein, Percutaneous Approach (ICD-10-PCS; 2018-06-09)
PROC: 02PYX3Z Removal of Infusion Device from Great Vessel, External Approach (ICD-10-PCS; 2018-06-12)
PROC: 02HV33Z Insertion of Infusion Device into Superior Vena Cava, Percutaneous Approach (ICD-10-PCS; 2018-06-12)
DX: A41.9 Sepsis, unspecified organism (principal); K63.1 Perforation of intestine (nontraumatic); J15.0 Pneumonia due to Klebsiella pneumoniae; K65.9 Peritonitis, unspecified; N17.0 Acute kidney failure with tubular necrosis; J96.00 Acute respiratory failure, unspecified whether with hypoxia or hypercapnia; I82.621 Acute embolism and thrombosis of deep veins of right upper extremity; E87.0 Hyperosmolality and hypernatremia; Z68.43 Body mass index [BMI] 50.0-59.9, adult; K43.0 Incisional hernia with obstruction, without gangrene; K63.0 Abscess of intestine; Z71.3 Dietary counseling and surveillance; E78.5 Hyperlipidemia, unspecified; E03.9 Hypothyroidism, unspecified; I10 Essential (primary) hypertension; E11.9 Type 2 diabetes mellitus without complications; N14.1 Nephropathy induced by other drugs, medicaments and biological substances; E66.01 Morbid (severe) obesity due to excess calories; E87.6 Hypokalemia; F10.20 Alcohol dependence, uncomplicated; K80.20 Calculus of gallbladder without cholecystitis without obstruction; T50.8X5A Adverse effect of diagnostic agents, initial encounter; M19.90 Unspecified osteoarthritis, unspecified site; B96.20 Unspecified Escherichia coli [E. coli] as the cause of diseases classified elsewhere; Y92.89 Other specified places as the place of occurrence of the external cause; Z83.3 Family history of diabetes mellitus
CPT/HCPCS: 36415; 36569; 36600; 71045; 74177; 76775; 80048; 80053; 80076; 80202; 81001; 82040; 82570; 82805; 82962; 83036; 83605; 83690; 83735; 83880; 84100; 84300; 84478; 84484; 85025; 85610; 85730; 86850; 86900; 86901; 87040; 87070; 87075; 87076; 87077; 87081; 87086; 87186; 87205; 88302; 93005; 93306; 93930; 93971; 94002; 94003; 94640; 96365; 96366; 96367; 96375; 97110; 97116; 97163; 97530; 99291; A6257; C9113; J0330; J0690; J0696; J1815; J1956; J2250; J2405; J2543; J2704; J3480; J3490; J7060; P9047; Q9956

== ENCOUNTER 2018-07-21 14:55 | Inpatient (IN) | payer OTHER ==
[~2018-07-21] VITALS: Ht 154.9 cm; Wt 143.3 kg
[~2018-07-21 14:55] MED LIST changes: -HYDRCRY2 XX; +LEVO112T4 PO; -LEVO25TA6 PO
[2018-07-21 18:18] LABS: Basophils # (auto) 0.1 uL; Basophils % (auto) 1.6 % (0.0-2.0); Eosinophils # (auto) 0.2 uL; Eosinophils % (auto) 2.5 % (0.0-7.0); Hematocrit 40.6 % (36.0-46.0); Hemoglobin 13.4 g/dL (12.2-16.2); Lymphocytes # (auto) 1.7 uL; Lymphocytes % (auto) 20.2 % (10.0-50.0); Mean Corpuscular Hemoglobin 31.9 pg (28.0-32.0); Mean Corpuscular Hgb Conc. 33.1 g/dL (32.0-36.0); Mean Corpuscular Volume 96.4 fL (80.0-100.0); Monocytes # (auto) 0.4 uL; Monocytes % (auto) 4.2 % (0.0-12.0); Neutrophils # (auto) 6.1 uL; Neutrophils % (auto) 71.5 % (37.0-80.0); Nucleated Red Blood Cells % 0.1 %; Platelet Count (auto) 287 10^3/uL (140-450); Red Blood Cells 4.21 10^6/uL (4.0-5.20); Red Cell Distribution Width 14.2 % (11.8-14.3); White Blood Cell 8.5 10^3/uL (4.4-10.8)
[2018-07-21] MEDS ORDERED: PIPERACILLIN-TAZOB 3.375GM 100 ML IV ONE (18:45)
[2018-07-21 18:59] LABS: Albumin 3.3 g/dL (3.4-5.0); BUN/Creatinine Ratio 7.4; Calcium 8.8 mg/dL (8.5-10.1); Potassium 4.3 mmol/L (3.5-5.1)
[2018-07-21 19:01] LABS: Bilirubin, Total 0.3 mg/dL (0.2-1.0)
[2018-07-21] MEDS ORDERED: DEXTROSE (50%) 50ML SYRG IV PRN (21:00)
[2018-07-21] MEDS ORDERED: ONDANSETRON HCL 4 MG/2 ML VIAL IV PRN (21:00)
[2018-07-21] MEDS ORDERED: HYDROcodone-ACET 5/325MG TAB PO PRN (21:00)
[2018-07-21] MEDS ORDERED: TEMAZEPAM 15 MG CAP PO PRN (21:00)
[2018-07-21] MEDS ORDERED: ACETAMINOPHEN 325 MG TAB PO PRN (21:00)
[2018-07-21 21:09] LABS: Urine Bacteria FEW /hpf (None Seen); Urine Blood TRACE /uL (Negative); Urine Specific Gravity 1.003 (1.001-1.035); Urine WBC 10 /hpf (0 - 5)
[2018-07-21] MEDS ORDERED: ATORVASTATIN 20 MG TAB PO SCH (22:00)
[2018-07-21] MEDS ORDERED: POTA10TA51 PO (22:12)
[2018-07-21 22:30] VITALS: BP 158/62
[2018-07-21] MEDS: FAMOTIDINE 20 MG TAB PO SCH (23:00)
[2018-07-21] MEDS: CLINDAMYCIN 600MG IV 50 ML IV SCH (23:00)
[2018-07-22] MEDS: PIPERACILLIN-TAZOB 3.375GM 100 ML IV SCH ×3 (00:56→12:00)
[2018-07-22] MEDS: ACCU-CHEK COMFORT CURVE STRIP VI SCH ×3 (01:47→11:32)
[2018-07-22 05:43] VITALS: BP 143/68
[2018-07-22] MEDS: CLINDAMYCIN 600MG IV 50 ML IV SCH ×2 (06:12→13:53)
[2018-07-22 06:15] LABS: Basophils # (auto) 0 uL; Basophils % (auto) 0.5 % (0.0-2.0); Eosinophils # (auto) 0.2 uL; Eosinophils % (auto) 3.2 % (0.0-7.0); Hematocrit 37.1 % (36.0-46.0); Hemoglobin 12.4 g/dL (12.2-16.2); Lymphocytes % (auto) 13.7 % (10.0-50.0); Mean Corpuscular Hemoglobin 32.3 pg (28.0-32.0); Mean Corpuscular Hgb Conc. 33.6 g/dL (32.0-36.0); Mean Corpuscular Volume 96.2 fL (80.0-100.0); Monocytes # (auto) 0.6 uL; Monocytes % (auto) 8.2 % (0.0-12.0); Neutrophils # (auto) 5.3 uL; Neutrophils % (auto) 74.4 % (37.0-80.0); Nucleated Red Blood Cells % 0.1 %; Platelet Count (auto) 264 10^3/uL (140-450); Red Blood Cells 3.85 10^6/uL (4.0-5.20); Red Cell Distribution Width 14.3 % (11.8-14.3); White Blood Cell 7.1 10^3/uL (4.4-10.8)
[2018-07-22 06:46] LABS: BUN/Creatinine Ratio 9.8; Bilirubin, Total 0.9 mg/dL (0.2-1.0); Calcium 9.1 mg/dL (8.5-10.1); Potassium 4.2 mmol/L (3.5-5.1)
[2018-07-22] MEDS ORDERED: LEVOTHYROXINE SODIUM 112 MCG TAB PO SCH (07:00)
[2018-07-22] MEDS: InsuLIN REG 1unit/0.01ml Soln (100units/ml) SC SCH ×3 (07:05→11:32)
[2018-07-22 08:00] VITALS: BP 135/70
[2018-07-22] MEDS ORDERED: CYCL1TAB18 PO (08:02)
[2018-07-22] MEDS ORDERED: WARF5TAB71 PO (08:03)
[2018-07-22 09:00] VITALS: BP 135/70
[2018-07-22] MEDS: FAMOTIDINE 20 MG TAB PO SCH (09:39)
[2018-07-22] MEDS ORDERED: LISINOPRIL 10 MG TAB PO SCH (10:00)
[2018-07-22] MEDS ORDERED: ENOXAPARIN SOD 40 MG/0.4 ML SYRINGE SC SCH (10:00)
[2018-07-22 13:00] VITALS: BP 145/64
[2018-07-22] MEDS ORDERED: LEVO500T21 PO (16:02)
[2018-07-22 17:02] VITALS: BP 135/70
[2018-07-22 17:43] VITALS: BP 147/70
== END 2018-07-22 17:50 | disposition home health service (06) | DRG 920 ==
LOC: ER 14:55 → OVERFLOW 14:56 → WEST WING 22:04
PROVIDERS: ADMIT Nurse Practitioner; ATTEND Nurse Practitioner
DX: L76.34 Postprocedural seroma of skin and subcutaneous tissue following other procedure (principal); L02.211 Cutaneous abscess of abdominal wall; N39.0 Urinary tract infection, site not specified; Z68.43 Body mass index [BMI] 50.0-59.9, adult; L76.32 Postprocedural hematoma of skin and subcutaneous tissue following other procedure; Y83.8 Other surgical procedures as the cause of abnormal reaction of the patient, or of later complication, without mention of misadventure at the time of the procedure; E11.9 Type 2 diabetes mellitus without complications; E66.01 Morbid (severe) obesity due to excess calories; E78.5 Hyperlipidemia, unspecified; I10 Essential (primary) hypertension; Z83.3 Family history of diabetes mellitus; M19.90 Unspecified osteoarthritis, unspecified site; Z79.899 Other long term (current) drug therapy; Z79.82 Long term (current) use of aspirin; Z86.718 Personal history of other venous thrombosis and embolism
CPT/HCPCS: 36415; 76700; 80053; 81001; 82962; 85025; 87081; 87205; 96374; J1815; J2543; J3490

== ENCOUNTER 2019-07-20 02:41 | Emergency (ER) | payer OTHER ==
[~2019-07-20] VITALS: Ht 170.2 cm; Wt 143.8 kg
[~2019-07-20 02:41] MED LIST changes: +ASPI-404 PO; -ASPI81TA27 PO; +CYCL1TAB18 PO; +LEVO500T21 PO; -LISI10TA6 PO; +POTA10TA51 PO; +WARF5TAB71 PO
[2019-07-20 06:55] LABS: Basophils # (auto) 0 uL; Basophils % (auto) 0.3 % (0.0-2.0); Eosinophils # (auto) 0.1 uL; Eosinophils % (auto) 1.4 % (0.0-7.0); Hematocrit 42.1 % (36.0-46.0); Hemoglobin 14.3 g/dL (12.2-16.2); Lymphocytes # (auto) 1.8 uL; Lymphocytes % (auto) 23.8 % (10.0-50.0); Mean Corpuscular Hgb Conc. 33.9 g/dL (32.0-36.0); Mean Corpuscular Volume 103.2 fL (80.0-100.0); Monocytes # (auto) 0.5 uL; Monocytes % (auto) 6.7 % (0.0-12.0); Neutrophils # (auto) 5.1 uL; Neutrophils % (auto) 67.8 % (37.0-80.0); Nucleated Red Blood Cells % 0.1 %; Platelet Count (auto) 217 10^3/uL (140-450); Red Blood Cells 4.08 10^6/uL (4.0-5.20); Red Cell Distribution Width 14.4 % (11.8-14.3); White Blood Cell 7.5 10^3/uL (4.4-10.8)
[2019-07-20 07:10] LABS: INR 0.98 (0.9-1.15); Partial Thromboplastin Time 32.6 sec (23.64-32.05)
[2019-07-20 07:14] LABS: Albumin 3.2 g/dL (3.4-5.0); BUN/Creatinine Ratio 4.8; Calcium 8.1 mg/dL (8.5-10.1)
[2019-07-20 07:19] LABS: Bilirubin, Total 0.4 mg/dL (0.2-1.0)
[2019-07-20] MEDS ORDERED: SODIUM CHLORIDE 0.9% 1,000 ML IV ONE (08:11)
[2019-07-20] MEDS ORDERED: POTASSIUM EFFERVESENT TAB 25 MEQ PO ONE (08:15)
[2019-07-20 09:27] LABS: Urine WBC None Seen /hpf (0 - 5)
[2019-07-20 09:51] LABS: Urine Bacteria NONE SEEN /hpf (None Seen); Urine Blood Negative /uL (Negative); Urine Specific Gravity 1.002 (1.001-1.035)
[2019-07-20 10:04] LABS: Amphetamine Screen, Urine NEGATIVE (NEGATIVE); Barbiturate Scree,Urine NEGATIVE (NEGATIVE); Benzodiazephine Screen, Urine NEGATIVE (NEGATIVE); Cannabinoid Screen, Urine NEGATIVE (NEGATIVE); Cocaine Screen, Urine NEGATIVE (NEGATIVE); Opiate Scree,Urine NEGATIVE (NEGATIVE); Phencyclidine Screen, Urine NEGATIVE (NEGATIVE)
[2019-07-20 12:28] VITALS: BP 114/56
== END 2019-07-20 13:25 | disposition home or self-care (01) ==
LOC: EDBD 02:41 → ER 02:51
DX: S05.11XA Contusion of eyeball and orbital tissues, right eye, initial encounter (principal); F10.20 Alcohol dependence, uncomplicated; E66.01 Morbid (severe) obesity due to excess calories; D75.89 Other specified diseases of blood and blood-forming organs; M19.90 Unspecified osteoarthritis, unspecified site; E44.1 Mild protein-calorie malnutrition; E11.9 Type 2 diabetes mellitus without complications; E78.5 Hyperlipidemia, unspecified; I10 Essential (primary) hypertension; Z68.42 Body mass index [BMI] 45.0-49.9, adult; Z86.718 Personal history of other venous thrombosis and embolism; Z79.82 Long term (current) use of aspirin; Z79.899 Other long term (current) drug therapy; Y90.8 Blood alcohol level of 240 mg/100 ml or more; W18.39XA Other fall on same level, initial encounter; Y93.89 Activity, other specified; Y92.89 Other specified places as the place of occurrence of the external cause; Y99.8 Other external cause status
CPT/HCPCS: 36415; 70450; 80053; 80307; 80320; 81001; 85025; 85610; 85730

== ENCOUNTER 2025-03-24 13:47 | Emergency (ER) | payer OTHER ==
[~2025-03-24] VITALS: Ht 170.2 cm; Wt 127.3 kg
[~2025-03-24 13:47] MED LIST changes: -ASPI-404 PO; +ASPI-543 PO; +CYCL-839 PO; -CYCL1TAB18 PO; -LEVO500T21 PO; +LEVO500T31 PO; +POTA-36 PO; -POTA10TA51 PO; +WARF-66 PO; -WARF5TAB71 PO
[2025-03-24] MEDS: SODIUM CHLORIDE 0.9% 1,000 ML IV ONE (14:00)
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
--- NOTE | 2025-03-24 15:34 | DVH ---
CT MAXILLOFACIAL WITHOUT INDICATION: fall EXAM DATE: 03/24/2025 02:54 PM COMPARISON: None RADIATION DOSE: CTDIvol: 62 mGy, DLP: 1631 mGy*cm PROCEDURE: Using the CT scanner, contiguous noncontrast scans were obtained from above the orbital ri ms to below the mandible. Coronal and sagittal reformatted images were then generated. All CT scans at this medical facility are performed using dose modulation techniques as appropriate t o a performed exam including the following: Automated exposure control was utilized; adjustment of th e MA and/or KV according to patient size; and use of iterative reconstruction technique. FINDINGS: The facial bones, including the orbits and paranasal sinuses are intact without evidence of fracture. The paranasal sinuses, mastoid air cells and middle ear cavities are normally aerated. The orbital contents are normal. Frontal scalp hematoma. IMPRESSION: Frontal scalp hematoma. No acute fracture CT findings of the maxillofacial region.
[2025-03-24 19:50] VITALS: PULSE 97; RESP 14; O2SAT 99
[2025-03-24 21:05] VITALS: TEMP 98.9
[2025-03-24 23:05] VITALS: BP 108/57; PULSE 88; RESP 17; O2SAT 93
== END 2025-03-25 23:35 | disposition home or self-care (01) ==
LOC: EDBD 13:47 → ER 13:56
DX: S00.31XA Abrasion of nose, initial encounter (principal); S09.8XXA Other specified injuries of head, initial encounter; M19.90 Unspecified osteoarthritis, unspecified site; F10.129 Alcohol abuse with intoxication, unspecified; E11.9 Type 2 diabetes mellitus without complications; I10 Essential (primary) hypertension; Z90.710 Acquired absence of both cervix and uterus; Z79.899 Other long term (current) drug therapy; Z98.890 Other specified postprocedural states; Y90.8 Blood alcohol level of 240 mg/100 ml or more; W05.1XXA Fall from non-moving nonmotorized scooter, initial encounter; Y93.89 Activity, other specified; Y92.410 Unspecified street and highway as the place of occurrence of the external cause; Y99.8 Other external cause status
CPT/HCPCS: 36415; 70486; 80320; 82947; 96360; 96361; 99285; J7030